=== PATIENT | male | born 1990 | race African-American/Black ===

== ENCOUNTER 2017-08-30 11:51 | Emergency (ER) | payer SELFPAY ==
[~2017-08-30] VITALS: Ht 175.3 cm; Wt 99.8 kg
--- NOTE | 2017-08-30 12:09 | ED GI/GU/ABDOMINAL COMPLAINT ---
History of Present Illness General Chief Complaint: General Adult Stated Complaint: FEVER AND ABD PAIN X4 DAYS Source: patient Exam Limitations: no limitations Vital Signs & Intake/Output Vital Signs & Intake/Output ED Intake and Output 08/31 0000 08/30 1200 Intake Total 0 Output Total Balance 0 Intake, Oral 0 Patient 220 lb Weight Weight Reported by Patient Measurement Method Allergies Coded Allergies: NO KNOWN ALLERGIES (03/15/14) Reconcile Medications Ciprofloxacin HCl (Cipro) 500 MG TABLET 1 TAB PO BID diarrhea Metronidazole (Flagyl) 500 MG TABLET 1 TAB PO TID diarrhea Triage Note: STATES HE GOT BACK FROM [facility] ON THURSDAY. STATES ON THURSDAY HE STARTED HAVING ABDOMINAL PAIN, FEVER, N/V/D Triage Nurses Notes Reviewed? yes Onset: Abrupt Duration: day(s): (5), constant, continues in ED Timing: single episode today Quality/Severity: cramping Severity Numbers: 6 Location: generalized abdomen Radiation: no radiation Activities at Onset: none Prior Abdominal Problems: none Past Sexual History: Unobtainable at this time No Modifying Factors: none Associated Symptoms: diarrhea, fever/chills HPI: 26-year-old male with no past medical history presents for evaluation of nausea, abdominal pain, diarrhea, fever and cough. Patient states he returned from a trip to [facility] 2 days ago. He states that 5 days ago while in ED he started developing his symptoms. He states that the pain is located diffusely in his abdomen describes as cramping. The pain is present only before he needs to have a bowel movement and is resolved after the bowel movement. No blood in the diarrhea. No sick contacts. He states he was drinking the water while in [facility]. He also reports subjective signs of fever. He also reports cough. The cough is productive of clear sputum. He states that he is coughing somewhat hurting his back. He does not smoke. No history of asthma. No shortness of breath or chest pain. (Enmanuel Santo) Past History Travel History Traveled to [place] past 21 day No Medical History Any Pertinent Medical History? see below for history Surgical History Surgical History: non-contributory Psychosocial History What is your primary language Burmese Tobacco Use: Current Daily Use Daily Tobacco Use Amount/Type: => 5 Cigarettes daily ETOH Use: occasional use Illicit Drug Use: marijuana Family History Hx Contributory? No (Enmanuel Santo) Review of Systems Review of Systems Constitutional: Reports: fever, malaise. EENTM: Reports: no symptoms. Respiratory: Reports: see HPI, cough, sputum production. Cardiovascular: Reports: no symptoms. GI: Reports: see HPI, abdominal pain, diarrhea, nausea. Genitourinary: Reports: no symptoms. Musculoskeletal: Reports: muscle pain. Skin: Reports: no symptoms. Neurological/Psychological: Reports: no symptoms. Hematologic/Endocrine: Reports: no symptoms. Immunologic/Allergic: Reports: no symptoms. All Other Systems: Reviewed and Negative (Enmanuel Santo) Physical Exam Physical Exam General Appearance: well developed/nourished, no apparent distress, alert, awake Head: atraumatic, normal appearance Eyes: Bilateral: normal appearance, PERRL, EOMI. Ears, Nose, Throat, Mouth: hearing grossly normal, moist mucous membrane Neck: normal inspection, supple, full range of motion Respiratory: normal breath sounds, chest non-tender, no respiratory distress, lungs clear Cardiovascular: regular rate/rhythm, normal peripheral pulses Peripheral Pulses: 2+ radial (R), 2+ radial (L) Gastrointestinal: normal bowel sounds, soft, non-tender, no organomegaly Back: normal inspection, normal range of motion, no vertebral tenderness Extremities: normal range of motion Neurologic/Psych: no motor/sensory deficits, awake, alert, oriented x 3, normal gait Skin: intact, normal color, warm/dry Core Measures ACS in differential dx? No Sepsis Present: No Sepsis Focused Exam Completed? No (Enmanuel Santo) Progress Differential Diagnosis: appendicitis, bowel obstruction, gastritis, hepatitis, inflamm bowel dis, pancreatitis, peptic ulcer, PUD/GERD, SBO, viral gastroenteritis, bacterial gastroenteritis, C. difficile Plan of Care: Orders Procedure Date/time Status Add-on Test (ER Only) 08/30 1224 Active CULTURE,STOOL 08/30 1224 Active OVA AND PARASITE ANTIGENS 08/30 1224 Active C.DIFFICILE 08/30 1224 Active LIPASE 08/30 1218 Complete C-REACTIVE PROTEIN 08/30 1218 Complete RAPID VIRAL INFLUENZA A 08/30 1153 Complete URINALYSIS 08/30 1153 Complete COMPREHENSIVE METABOLIC PANEL 08/30 1153 Complete CBC WITHOUT DIFFERENTIAL 08/30 1153 Complete Laboratory Tests 08/30/17 1439: Urine Color YEL, Urine Clarity CLEAR, Urine pH 6.0, Ur Specific [place] 1.025, Urine Protein NEG, Urine Ketones NEG, Urine Nitrite NEG, Urine Bilirubin NEG, Urine Urobilinogen 0.2, Ur Leukocyte Esterase NEG, Ur Microscopic EXAM NOT REQUIRED, Urine Hemoglobin NEG, Urine Glucose NEG 08/30/17 1218: Anion Gap 10, Estimated GFR > 60, BUN/Creatinine Ratio 8.8, Glucose 96, Calcium 8.9, Total Bilirubin 0.5, AST 22, ALT 57, Alkaline Phosphatase 51, C-Reactive Prot, Quant 2.1 H, Total Protein 6.5, Albumin 3.7, Globulin 2.8, Albumin/ Globulin Ratio 1.3, Lipase 119, CBC w Diff MAN DIFF ORDERED, RBC 5.09, MCV 81.0, MCH 27.1, MCHC 33.5, RDW 13.6, MPV 8.1, Gran % 64.8, Lymphocytes % 17.5 L, Monocytes % 11.9 H, Eosinophils % 5.5 H, Basophils % 0.3, Absolute Granulocytes 4.5, Absolute Lymphocytes 1.2, Absolute Monocytes 0.8 H, Absolute Eosinophils 0.4, Absolute Basophils 0, Platelet Estimate VERIFIED BY SMEAR, Normocytic RBCs VERIFIED, Normochromic RBCs VERIFIED 08/30/17 1209: Lipase Cancelled Microbiology 08/30 1231 STOOL: Cryptosporidium Antigen - RECD 08/30 1231 STOOL: Giardia Antigen (MARGO) - RECD 08/30 1231 STOOL: Clostridium difficile Toxin A & B - RECD 08/30 1231 STOOL: Stool Culture - RECD 08/30 1208 NASOPHARYN: Influenza Virus A & B Rapid Smear - COMP Patient seen and evaluated. He is reporting nausea or diarrhea abdominal pain and fever after returning from [facility]. Stool culture sent. Patient's abdomen currently is soft and nontender. A CT scan of his abdomen and pelvis was ordered however patient refused this. He states that he is only here to get a note for work. Advised patient of the importance of checking a CT scan to rule out an however patient understands these risks and he still does not want the CT. He is alert and oriented 3. He also refuses a chest x-ray. Influenza testing is negative. All blood work is within normal limits. Due to patient's recent weight traveling to a developing country now having diarrhea he'll be treated with Cipro and Flagyl. Advised to rest, plenty of fluids and eat high fiber foods. Wash hands avoid close contact with others monitor symptoms follow -up with primary care doctor. Discussed return precautions patient appears clinically well he agrees the plan. Initial ED EKG: none (Enmanuel Santo) Departure Departure Disposition: HOME OR SELF CARE Condition: Stable Clinical Impression Primary Impression: Diarrhea Qualifiers: Diarrhea type: presumed infectious Qualified Code: R19.7 - Diarrhea , unspecified Referrals: Patient Has No Primary Care Dr (PCP/Family) Additional Instructions: Rest and drink plenty of fluids. Eat high fiber foods. Tylenol as needed for pain. Take both antibiotics as directed for the full course. Monitor symptoms closely. Return to the emergency department with worsening pain, unable tolerate fluids, fever, severe pain or any other concerns. Departure Forms: Customer Survey General Discharge Information Prescriptions: Current Visit Scripts Ciprofloxacin HCl (Cipro) 1 TAB PO BID #14 TAB Metronidazole (Flagyl) 1 TAB PO TID #21 TAB (Enmanuel Santo) PA/CHARTER PILOT Co-Sign Statement Statement: ED Attending supervision documentation- [] I saw and evaluated the patient. I have also reviewed all the pertinent lab results and diagnostic results. I agree with the findings and the plan of care as documented in the PA's/CHARTER PILOT's documentation. [X] I have reviewed the ED Record and agree with the PA's/CHARTER PILOT's documentation. [] Additions or exceptions (if any) to the PAs/CHARTER PILOT's note and plan are summarized below: [] (Wu MURRAY,Dank Cohen)
[2017-08-30 12:33] LABS: ABSOLUTE BASOPHIL COUNT 0 /CUMM (0.0-0.2); ABSOLUTE EOSINOPHIL COUNT 0.4 /CUMM (0.0-0.7); ABSOLUTE GRANULOCYTE CT 4.5 /CUMM (1.4-6.5); ABSOLUTE LYMPH COUNT 1.2 /CUMM (1.2-3.4); ABSOLUTE MONOCYTE COUNT 0.8 /CUMM (0.10-0.60); BASOPHIL % 0.3 % (0.0-2.0); EOSINOPHIL % 5.5 % (0-5); GRANULOCYTE % 64.8 % (42.2-75.2); HEMATOCRIT 41.3 % (42-52); MEAN CORPUSCULAR HGB 27.1 PG (27.0-31.0); MEAN CORPUSCULAR HGB CONC 33.5 G/DL (33.0-37.0); MEAN PLATELET VOLUME 8.1 FL (7.4-10.4); PLATELET COUNT 287 /CUMM (130-400); RBC DISTRIBUTION WIDTH 13.6 % (11.5-14.5); RED BLOOD CELL CT 5.09 /CUMM (4.70-6.10)
[2017-08-30 14:16] VITALS: BP 129/98
[2017-08-30] MEDS ORDERED: FLAGYL500 MG PO (15:03)
[2017-08-30] MEDS ORDERED: CIPRO500 M1 PO (15:03)
== END 2017-08-30 15:07 ==
LOC: ERH 11:51
PROVIDERS: Physician Assistant Medical
DX: R19.7 Diarrhea, unspecified (principal); R50.9 Fever, unspecified; R05 Cough; R10.9 Unspecified abdominal pain
CPT/HCPCS: 81003; 87045; 87328; 87329; 87804; 87804-59; 96372; J1885